=== PATIENT | female | born 1995 | race Caucasian/White ===

== ENCOUNTER 2020-04-04 14:31 | Observation (INO) ==
[2020-04-04 15:11] LABS: Basophils # 0.1 K/mcL (0.0-0.2); Basophils % 0.5 %; Eosinophils # 0.1 K/mcL (0.0-0.6); Eosinophils % 1.1 %; Hematocrit 43.1 % (35.3-44.9); Hemoglobin 13.8 g/dL (11.5-15.4); Immature Granulocytes % 0.4 % (0-4); Lymphocytes # 2.8 K/mcL (0.6-4.6); Lymphocytes % 25.7 %; Mean Corpuscular Volume 87.6 fL (83.0-100.0); Mean Platelet Volume 9.5 fL (9.4-12.4); Monocytes # 0.7 K/mcL (0.0-1.3); Monocytes % 6.2 %; Neutrophils # 7.2 K/mcL (1.6-8.9); Platelet Count 351 K/mcL (140-400); Red Blood Count 4.92 M/mcL (3.82-4.97); Red Cell Distribution Width 12.8 % (11.5-14.5); Segmented Neutrophils % 66.1 %; White Blood Count 10.9 K/mcL (4.3-11.1)
[2020-04-04 15:12] LABS: Bilirubin,Urine Moderate (Negative); Blood,Urine Small (Negative); Clarity,Urine Cloudy (Clear); Color,Urine Orange (Yellow); Glucose,Urine (UA) Normal (Normal); Ketones,Urine Trace mg/dL (Negative); Leukocyte Esterase,Urine Small (Negative); Nitrite,Urine Negative (Negative); Protein,Urine Trace mg/dL (Neg-Trace); Specific Gravity,Urine 1.021 (1.010-1.025); Urobilinogen,Urine Normal (Normal)
[2020-04-04 15:13] LABS: Bacteria,Urine Few per hpf (None-Few); Hyaline Casts,Urine None Seen per lpf (None-Few); Squamous Epithelial Cell,Urine Many per lpf (None-Few)
[2020-04-04 15:29] LABS: Alanine Aminotransferase 271 Units/L (7-52); Albumin 4.1 g/dL (3.5-5.7); Alkaline Phosphatase 226 Units/L (34-104); Aspartate Amino Transferase 191 Units/L (13-39); BUN/Creatinine Ratio 10 (6-26); Bilirubin,Total 1.9 mg/dL (0.3-1.0); Blood Urea Nitrogen 9 mg/dL (6-20); Calcium 9.4 mg/dL (8.6-10.3); Carbon Dioxide 28 mEq/L (23-29); Chloride 101 mEq/L (98-107); Glucose 123 mg/dL (70-105); Lipase 10 Units/L (11-82); Osmolality,Calculated 286 (280-300); Sodium 138 mEq/L (136-145); Total Protein 8.1 g/dL (6.4-8.9); eGFR For African Americans > 60 (> 60); eGFR For Non-African Americans > 60 (> 60)
[2020-04-04] MEDS ORDERED: Ondansetron ODT 4 MG TAB.RAPDIS SL ONE (15:30)
[2020-04-04] MEDS ORDERED: Hyoscyamine SL 0.125 MG TAB.SUBL SL STA (15:30)
[2020-04-04 15:39] LABS: Mucus,Urine Few per lpf (Few); Renal Epithelial Cells,Urine Few per hpf (None-Few); Transitional Epi Cells,Urine Few per hpf (None-Few)
[2020-04-04 15:40] LABS: RBC,Urine 0-3 per hpf (0-3)
[2020-04-04] MEDS ORDERED: *HR* OxyCODONE/APAP 10/325 TABLET PO PRN (17:46)
[2020-04-04] MEDS ORDERED: Ondansetron 4 MG/2 ML VIAL IVP PRN (17:46)
[2020-04-04] MEDS: 0.9 % Sodium Chloride 1,000 ML IVC SCH (20:01)
[2020-04-05] MEDS: cefOXitin 2,000 MG in 0.9 % Sodium Chloride Mini Bag 100 ML IVPB SCH ×2 (02:21→11:14)
[2020-04-05 07:51] LABS: Hematocrit 42.2 % (35.3-44.9); Hemoglobin 13.8 g/dL (11.5-15.4); Mean Corpuscular HGB Conc 32.7 g/dL (31.6-35.5); Mean Corpuscular Hemoglobin 28.7 pg (28.0-33.3); Mean Corpuscular Volume 87.7 fL (83.0-100.0); Mean Platelet Volume 9.8 fL (9.4-12.4); Platelet Count 331 K/mcL (140-400); Red Blood Count 4.81 M/mcL (3.82-4.97); White Blood Count 8.7 K/mcL (4.3-11.1)
[2020-04-05 08:23] LABS: Albumin 4.1 g/dL (3.5-5.7); Albumin/Globulin Ratio 1.1 (1.1-2.2); Bilirubin,Direct 1.8 mg/dL (0.0-0.2); Bilirubin,Indirect 1.3 mg/dL (0.0-1.0); Bilirubin,Total 3.1 mg/dL (0.3-1.0); Globulin 3.7 g/dL (2.4-3.5); Total Protein 7.8 g/dL (6.4-8.9)
[2020-04-05] MEDS: 0.9 % Sodium Chloride 1,000 ML IVC SCH (10:34)
[2020-04-05] MEDS: cefOXitin 2,000 MG in Water for inj. (sterile) 20 ML IVP SCH ×2 (11:28→20:24)
[2020-04-06] MEDS: 0.9 % Sodium Chloride 1,000 ML IVC SCH ×3 (00:50→20:02)
[2020-04-06] MEDS: cefOXitin 2,000 MG in Water for inj. (sterile) 20 ML IVP SCH ×4 (05:17→23:48)
[2020-04-06 08:06] LABS: Hematocrit 37.6 % (35.3-44.9); Mean Corpuscular HGB Conc 31.9 g/dL (31.6-35.5); Mean Corpuscular Hemoglobin 28.4 pg (28.0-33.3); Mean Corpuscular Volume 88.9 fL (83.0-100.0); Mean Platelet Volume 9.5 fL (9.4-12.4); Platelet Count 263 K/mcL (140-400); Red Blood Count 4.23 M/mcL (3.82-4.97); Red Cell Distribution Width 13.1 % (11.5-14.5); White Blood Count 7.5 K/mcL (4.3-11.1)
[2020-04-06 08:15] LABS: Albumin 3.7 g/dL (3.5-5.7); Albumin/Globulin Ratio 1.2 (1.1-2.2); Bilirubin,Direct 0.4 mg/dL (0.0-0.2); Bilirubin,Indirect 0.6 mg/dL (0.0-1.0); Globulin 3.1 g/dL (2.4-3.5); Total Protein 6.8 g/dL (6.4-8.9)
[2020-04-06] MEDS ORDERED: cefOXitin 1,000 MG, 0.9 % Sodium Chloride 1,000 ML IR ONE ×2 (09:00→12:12)
[2020-04-06] MEDS ORDERED: *HR* Labetalol 20 MG/4 ML SYRINGE IVP PRN (09:18)
[2020-04-06] MEDS ORDERED: Ondansetron 4 MG/2 ML VIAL IVP PRN ×2 (09:18→12:12)
[2020-04-06] MEDS ORDERED: *HR* Promethazine 25 MG/ML VIAL IVP PRN (09:18)
[2020-04-06] MEDS ORDERED: *HR* HYDROmorphone (PF) 1 MG/ML SYRINGE IVP PRN (09:18)
[2020-04-06] MEDS ORDERED: *HR* FentaNYL (PF) 100 MCG/2 ML VIAL ONE ×2 (09:29→10:24)
[2020-04-06] MEDS ORDERED: *HR* Propofol 200 MG/20 ML VIAL IVP ONE (09:30)
[2020-04-06] MEDS ORDERED: *HR* Midazolam HCl 2 MG/2 ML VIAL ONE (09:30)
[2020-04-06] MEDS ORDERED: Lidocaine -MPF 2% 2 ML VIAL ONE (09:31)
[2020-04-06] MEDS ORDERED: *HR* Rocuronium Bromide 50 MG/5 ML VIAL ONE (09:33)
[2020-04-06] MEDS ORDERED: *HR* Succinylcholine 200 MG/10 ML VIAL IVP ONE (09:33)
[2020-04-06] MEDS ORDERED: Ondansetron 4 MG/2 ML VIAL ONE (09:34)
[2020-04-06] MEDS ORDERED: Dexamethasone 4 MG/ML VIAL ONE (09:34)
[2020-04-06] MEDS ORDERED: Neostigmine Methylsulfate 3 MG/3 ML SYRINGE ONE (10:37)
[2020-04-06] MEDS ORDERED: Ketorolac 30 MG/ML VIAL ONE (10:37)
[2020-04-06] MEDS ORDERED: CeFAZolin Syr 3,000MG/30 ML 3,000 MG/30 ML SYRINGE IVPB ONE (10:39)
[2020-04-06] MEDS ORDERED: *HR* HYDROMORPHONE 2 MG/ML VIAL ONE (10:40)
[2020-04-06] MEDS: *HR* OxyCODONE/APAP 10/325 TABLET PO PRN (17:42)
[2020-04-07] MEDS: *HR* OxyCODONE/APAP 10/325 TABLET PO PRN (00:48)
[2020-04-07] MEDS: 0.9 % Sodium Chloride 1,000 ML IVC SCH (09:52)
[2020-04-07] MEDS: cefOXitin 2,000 MG in Water for inj. (sterile) 20 ML IVP SCH (09:52)
[2020-04-07 09:53] VITALS: BP 107/67
== END 2020-04-07 12:04 | disposition home or self-care (01) ==
LOC: 3ANU 14:31 → EMEROOARM 14:31 → 3ANU 17:55
PROVIDERS: ADMIT Surgery; ATTEND Surgery